=== PATIENT | female | born 1960 | race Caucasian/White ===

== ENCOUNTER 2018-03-29 12:35 | Emergency (ER) | payer MEDICAID ==
[2018-03-29 12:35] VITALS: BMI 23.4
--- NOTE | 2018-03-29 13:32 | ED PDOC ---
Arrival/HPI - General Chief Complaint: Dizziness/Lightheaded Time Seen by Provider: 03/29/18 12:46 - History of Present Illness Narrative History of Present Illness (Text): 03/29/18 13:18 Patient is a 57 year old female with a past medical history of hyperlipidemia, degenerative joint disease/spondylolisthesis, and migraines who presents to the ED complaining of dizziness. Patient says she had just returned home from physical therapy for her back yesterday afternoon when she suddenly started feeling like the room was spinning. Patient describes it as the room spinning, worsened by moving her head back and forth or laying down from a seated position. Patient says it improves if she sits still without moving her head. She says she has never had this before. She also admits to associated pain over the latter day area on the right with pressure, as well as palpitations that started yesterday which she attribute to anxiety about how she is feeling. Of note, patient says she started a medrol dose pack yesterday for her back pain. She also admits to constipation which she thinks is from the new medication. She denies any headache, fever, chills, changes in vision/hearing, ear pain/ pressure, tinnitus, sinus congestion, sore throat, cough, chest pain, SOB, nausea, vomiting, diarrhea, and pain/numbness/tingling/weakness in the extremities. PMH: hyperlipidemia, degenerative joint disease/spondylolisthesis, and migraines Meds: lipitor, naproxen prn, medrol dose pack Allergies: denies PSH: x3 FH: denies SH: denies tobacco, alcohol, and drug use (Adriana Branch) Past Medical History - Cardiac Hx VT: Yes - Psychiatric Hx Depression: No Hx Emotional Abuse: No Hx Physical Abuse: No Hx Substance Use: No - Surgical History Hx Hysterectomy: Yes - Suicidal Assessment Feels Threatened In Home Enviroment: No Family/Social History Family/Social History: No Known Family HX Smoking Status: Never Smoked Hx Alcohol Use: No Hx Substance Use: No Allergies/Home Meds Allergies/Adverse Reactions: Allergies No Known Allergies Allergy (Verified 03/29/18 12:51) Home Medications: Home Meds Medication Instructions Recorded Confirmed Prednisone [Babs] 2 mg PO DAILY 03/29/18 03/29/18 Review of Systems - Physician Review All systems were reviewed & negative as marked: Yes - Review of Systems Constitutional: Normal. absent: Fatigue, Fevers Eyes: Normal. absent: Vision Changes ENT: Normal. absent: Hearing Changes, Tinnitus, Sore Throat, Rhinorrhea, Sinus Congestion Respiratory: Normal. absent: SOB, Cough, Sputum, Wheezing Cardiovascular: Palpitations. absent: Chest Pain, Edema, Calf Pain, Syncope Gastrointestinal: Constipation. absent: Abdominal Pain, Diarrhea, Nausea, Vomiting Genitourinary Female: Normal. absent: Dysuria, Frequency, Hematuria Musculoskeletal: Back Pain (chronic). absent: Myalgias Skin: Normal. absent: Rash Neurological: Dizziness. absent: Headache, Focal Weakness, Speech Changes, Facial Droop Psychiatric: Anxiety (about the dizziness she feels) Physical Exam Temperature: Afebrile Blood Pressure: Hypertensive (170/96, repeated at 150/92) Pulse: Regular Appearance: Positive for: Well-Appearing, Non-Toxic, Comfortable Pain Distress: None Mental Status: Positive for: Alert and Oriented X 3. No: Confused - Systems Exam Head: Present: Atraumatic, Normocephalic Pupils: Present: PERRL Extroacular Muscles: Present: EOMI, Other (no nystagmus) Conjunctiva: Present: Normal Ears: Present: NORMAL TM, Normal Canal. No: Erythema, TM Bulging, TM Perf Mouth: Present: Moist Mucous Membranes Nose (External): Present: Atraumatic Nose (Internal): Present: Normal Inspection Neck: Present: Normal Range of Motion. No: JVD, Bruit Respiratory/Chest: Present: Clear to Auscultation, Good Air Exchange. No: Respiratory Distress, Accessory Muscle Use Cardiovascular: Present: Regular Rate and Rhythm, Murmurs (DIONNE heard best at the right second intercostal space), Normal S1, S2 Abdomen: Present: Normal Bowel Sounds. No: Tenderness, Distention, Peritoneal Signs Upper Extremity: Present: Normal Inspection. No: Cyanosis, Edema Lower Extremity: Present: Normal Inspection. No: Edema Neurological: Present: GCS=15, CN II-XII Intact, Speech Normal, Motor Func Grossly Intact, Normal Sensory Function Skin: Present: Warm, Dry, Normal Color. No: Rashes Psychiatric: Present: Alert, Oriented x 3, Normal Insight, Normal Concentration Vital Signs Temp Pulse Resp BP Pulse Ox 03/29/18 12:46 97.7 F 106 H 18 149/87 100 Medical Decision Making ED Course and Treatment: 03/29/18 13:44 Seen and examined with the resident. Our history and physical exam reveals a woman with typical vertigo since yesterday. No headache. No numbness tingling or paresthesias. No weakness. No focal neurological findings. No nausea or vomiting. Her neurological exam is normal. (Kris Stewart) 03/29/18 13:40 Patient given meclizine for vertigo. Hypertensive with SBP in 150s - will need follow up with her PCP as patient has never been diagnosed before. EKG: Normal sinus rhythm at [address] head: no intracranial hemorrhage 03/29/18 15:07 (Adriana Branch) - Lab Interpretations Lab Results: 03/29/18 13:52 03/29/18 13:52 Lab Results 03/29/18 13:52: Sodium 147, Potassium 4.3, Chloride 107, Carbon Dioxide 26, Anion Gap 18, BUN 18, Creatinine 0.7, Est GFR ( Amer) > 60, Est GFR (Non- Af Amer) > 60, Random Glucose 97, Calcium 9.9, Phosphorus 3.6, Magnesium 2.0, Total Bilirubin 0.2, AST 28, ALT 43, Alkaline Phosphatase 67, Lactate Dehydrogenase 358, Total Creatine Kinase 35, Troponin I < 0.01, Total Protein 7.8, Albumin 4.6, Globulin 3.2, Albumin/Globulin Ratio 1.4 03/29/18 13:52: WBC 9.7, RBC 5.26, Hgb 12.6, Hct 39.3, MCV 74.7 L, MCH 24.0 L, MCHC 32.1, RDW 14.9 H, Plt Count 338, MPV 10.4, Gran % 59.8, Lymph % (Auto) 32.9 , [place] % (Auto) 4.7, Eos % (Auto) 2.1, Baso % (Auto) 0.5, Gran # 5.81, Lymph # ( Auto) 3.2, [place] # (Auto) 0.5, Eos # (Auto) 0.2, Baso # (Auto) 0.05 - RAD Interpretation Radiology Orders: 03/29/18 13:08 HEAD W/O CONTRAST [CT] Stat - Medication Orders Current Medication Orders: Discontinued Medications Meclizine HCl (Antivert) 25 mg PO STAT STA Stop: 03/29/18 13:09 Last Admin: 03/29/18 13:19 Dose: 25 mg - PA / SHAREPOINT CONSULTANT / Resident Statement / has reviewed & agrees with the documentation as recorded. / has examined the patient and agrees with the treatment plan. Disposition/Present on Arrival - Present on Arrival Any Indicators Present on Arrival: No History of DVT/PE: No History of Uncontrolled Diabetes: No Urinary Catheter: No History of Decub. Ulcer: No History Surgical Site Infection Following: None - Disposition Have Diagnosis and Disposition been Completed?: Yes Disposition Time: 15:08 Patient Plan: Discharge - Disposition Diagnosis: Vertigo Disposition: HOME/ ROUTINE Patient Problems: Current Active Problems Problem Status Onset Vertigo Acute Condition: STABLE Discharge Instructions (ExitCare): Vertigo (a Type of Dizziness) Additional Instructions: Please follow up with your primary care doctor next week for evaluation of hypertension. Please take Antivert 25 mg every 6 hours only as needed for dizziness. Prescriptions: Meclizine [Meclizine*] 25 mg PO Q6 #30 tab Referrals: Shira Lee MD [Family Provider] - Follow up with primary Forms: [employer] (Telugu)
[2018-03-29 14:16] LABS: BASO # 0.05 K/mm3 (0.0-2.0); BASO % 0.5 % (0.0-3.0); EOS # 0.2 (0.0-0.7); EOS % 2.1 % (1.5-5.0); GRAN # 5.81 (1.4-6.5); GRAN % 59.8 % (50.0-68.0); HEMOGLOBIN 12.6 g/dL (12.0-16.0); LYMPH # 3.2 (1.2-3.4); LYMPH % 32.9 % (22.0-35.0); MEAN CELL VOLUME 74.7 fl (80.0-105.0); MEAN CORPUSCULAR HGB CONC 32.1 g/dl (31.0-37.0); MEAN PLATELET VOLUME 10.4 fl (7.0-11.0); MONO # 0.5 (0.1-0.6); MONO % 4.7 % (1.0-6.0); RBC 5.26 10^6/uL (3.5-6.1); RED CELL DISTRIBUTION WIDTH 14.9 % (11.5-14.5); WHITE BLOOD COUNT 9.7 10^3/ul (4.5-11.0)
[2018-03-29 14:18] LABS: ALB/GLOB RATIO 1.4 (1.1-1.8); ALBUMIN 4.6 g/dL (3.0-4.8); ALT/SGPT 43 U/L (7-56); AST/SGOT 28 U/L (14-36); BLOOD UREA NITROGEN 18 mg/dL (7-21); CALCIUM 9.9 mg/dL (8.4-10.5); GFR AFRICAN-AMERICAN > 60; GFR NON-AFRICAN AMERICAN > 60
[2018-03-29 14:28] LABS: TROPONIN I < 0.01 ng/mL
--- NOTE | 2018-03-29 14:44 | CT ---
PROCEDURE: CT HEAD WITHOUT CONTRAST. HISTORY: Vertigo COMPARISON: None available. TECHNIQUE: Axial computed tomography images were obtained through the head/brain without intravenous contrast. Radiation dose: Total exam DLP = 751.28 mGy-cm. This CT exam was performed using one or more of the following dose reduction techniques: Automated exposure control, adjustment of the mA and/or kV according to patient size, and/or use of iterative reconstruction technique. FINDINGS: HEMORRHAGE: No intracranial hemorrhage. BRAIN: No mass effect or edema. No atrophy or chronic microvascular ischemic changes. VENTRICLES: Unremarkable. No hydrocephalus. CALVARIUM: Unremarkable. PARANASAL SINUSES: Unremarkable as visualized. No significant inflammatory changes. MASTOID AIR CELLS: Unremarkable as visualized. No inflammatory changes. OTHER FINDINGS: None. IMPRESSION: No acute intracranial hemorrhage.
[2018-03-29 15:40] VITALS: RESP 19; TEMP 98
[2018-03-29 15:45] VITALS: BP 142/72; PULSE 85; O2SAT 100
--- NOTE | 2018-03-30 09:37 | CARD ---
APPROVED REPORT EKG Measurement Heart [id number] <Conclusion> Normal sinus rhythm Small q 2,3,F No change
== END 2018-03-29 15:44 | disposition home or self-care (01) ==
LOC: ED 12:35
DX: R42 Dizziness and giddiness (principal); E78.5 Hyperlipidemia, unspecified

== ENCOUNTER 2018-11-06 15:21 | Emergency (ER) | payer MEDICAID ==
[2018-11-06 15:22] VITALS: BMI 23.4
[2018-11-06] MEDS ORDERED: Sodium Chloride 0.9% 1,000 ML IV STA (16:01)
[2018-11-06 16:04] VITALS: TEMP 98.3
--- NOTE | 2018-11-06 16:09 | ED PDOC ---
Arrival/HPI - General Chief Complaint: Abdominal Pain Time Seen by Provider: 11/06/18 15:52 Historian: Patient - History of Present Illness Narrative History of Present Illness (Text): 11/06/18 16:08 57 year old female with a past medical history of hyperlipidemia, degenerative joint disease/spondylolisthesis, and migraines who presents to the ED complaining of abdominal pain and diarrhea, for the past few days. She states that her stool is loose today. Patient notes secondary heartburn, loss of appetite, and nausea. She has taking Tylenol and Pepto Bismol with no relief. Patient denies fevers, chills, headache, dizziness, chest pain, shortness of breath, dyspnea on exertion, cough, vomiting, back pain, neck pain, or any other complaint. Time/Duration: < week Symptom Course: Unchanged Activities at Onset: Light Context: Home Past Medical History - Provider Review Nursing Documentation Reviewed: Yes - Cardiac Hx ND: Yes - Psychiatric Hx Depression: No Hx Emotional Abuse: No Hx Physical Abuse: No Hx Substance Use: No - Surgical History Hx Hysterectomy: Yes - Anesthesia Hx Anesthesia: Yes Hx Anesthesia Reactions: No Hx Malignant Hyperthermia: No - Suicidal Assessment Feels Threatened In Home Enviroment: No Family/Social History - Physician Review Nursing Documentation Reviewed: Yes Family/Social History: No Known Family HX Smoking Status: Never Smoked Hx Alcohol Use: No Hx Substance Use: No Allergies/Home Meds Allergies/Adverse Reactions: Allergies No Known Allergies Allergy (Verified 03/29/18 12:51) Home Medications: Home Meds Medication Instructions Recorded Confirmed RX: Prednisone [Babs] 2 mg PO DAILY 03/29/18 03/29/18 Review of Systems - Physician Review All systems were reviewed & negative as marked: Yes - Review of Systems Constitutional: absent: Fevers Respiratory: absent: SOB, Cough Cardiovascular: absent: Chest Pain Gastrointestinal: Abdominal Pain, Diarrhea, Nausea, Appetite Changes (loss of apetite). absent: Vomiting Musculoskeletal: absent: Back Pain, Neck Pain Neurological: absent: Headache, Dizziness Physical Exam - Physical Exam Narrative Physical Exam (Text): 11/06/18 16:08 Gen: VS reviewed, alert, well developed, well nourished, nontoxic, mild distress. ENT: normal pharynx. Eye: EOMI, PERRL. Neck: no JVD, supple, no adenopathy. CV: regular rate, regular rhythm, no rubs, no murmur, no gallops, S1, S2, pulses equal and strong. Pulm: no distress, clear to auscultation, no wheeze, no rhonchi, breath sounds equal, no rales. Abd: soft, no guarding, no rebound, no rigidity, mild to moderate mid abdominal tenderness, normal bowel sounds Ext: no edema. Skin: good color, no rash, no cyanosis. Psych: responds appropriately to questions, normal affect. Neuro: oriented x 3, CN2-12 intact grossly, motor intact, sensation intact. Vital Signs Reviewed: Yes Vital Signs Temp Pulse Resp BP Pulse Ox 11/06/18 15:22 98.3 F 120 H 18 155/97 H 100 Temperature: Afebrile Blood Pressure: Hypertensive Pulse: Tachycardic Respiratory Rate: Normal Appearance: Positive for: Well-Appearing, Non-Toxic, Comfortable Pain Distress: None Mental Status: Positive for: Alert and Oriented X 3 Medical Decision Making ED Course and Treatment: 11/06/18 16:09 Impression: 57 year old female who presents to the emergency department complaining of abdominal pain. Plan: -- VBG -- Abdomen and Pellvis CT -- Labs -- IV fluids -- Toradol -- Zofran -- Urinalysis -- Reassess and disposition Prior Visits: Notes and results from previous visits were reviewed. Progress Notes: 11/06/18 18:00 on re-eval, patient feels well, pain mostly resolved, will continue to monitor. Pending CT 11/06/18 18:[address] blanchard, pending CT a/p, re-eval and final disposition. - RAD Interpretation Radiology Orders: 11/06/18 16:01 ABDOMEN & PELVIS [ABD PELVIS PO & IV CONTRAST] [CT] Stat - EKG Interpretation EKG Interpretation (Text): 11/06/18 18:22 [id number]:[id number] tachycardia at 110 bpm, nml qrs, nml axis, no acute sttw abn Interpreted by ED Physician: Yes - Medication Orders Current Medication Orders: Sodium Chloride (Sodium Chloride 0.9%) 1,000 mls @ 999 mls/hr IV .Q1H1M STA Stop: 11/06/18 17:01 Discontinued Medications Ketorolac Tromethamine (Toradol) 30 mg IVP STAT STA Stop: 11/06/18 16:02 Ondansetron HCl (Zofran Inj) 4 mg IVP STAT STA Stop: 11/06/18 16:02 - Scribe Statement The provider has reviewed the documentation as recorded by the Wagner Grewal Provider Scribe Attestation: All medical record entries made by the Scribe were at my direction and personally dictated by me. I have reviewed the chart and agree that the record accurately reflects my personal performance of the history, physical exam, medical decision making, and the department course for this patient. I have also personally directed, reviewed, and agree with the discharge instructions and disposition. Disposition/Present on Arrival - Present on Arrival Any Indicators Present on Arrival: No History of DVT/PE: No History of Uncontrolled Diabetes: No Urinary Catheter: No History of Decub. Ulcer: No History Surgical Site Infection Following: None - Disposition Have Diagnosis and Disposition been Completed?: Yes Diagnosis: Abdominal pain, Gastroenteritis Disposition: HOME/ ROUTINE Disposition Time: 19:53 Patient Plan: Discharge Condition: IMPROVED Discharge Instructions (ExitCare): Nausea and Vomiting, Adult (DC), Gastroenteritis (ED) Print Language: UKRAINIAN Additional Instructions: Please continue to hydrate with fluids(water, Gatorade, juices) at home Please take your medication as prescribed Please follow up with your PCP in 3-5 days. Prescriptions: Cephalexin [cephalexin] 500 mg PO BID 10 Days #20 cap Metronidazole [Flagyl] 500 mg PO BID 10 Days #20 tablet Referrals: Shira Lee MD [Family Provider] - Follow up with primary Forms: [employer] (Czech)
[2018-11-06] MEDS ORDERED: Iohexol 240 (50 ml) ONE (16:11)
[2018-11-06 17:07] LABS: VENOUS BLOOD GAS BASE EXCESS 0.8 mmol/L (0.0-2.0); VENOUS BLOOD GAS PO2 37 mm/Hg (30-55); VENOUS BLOOD PH 7.39 (7.32-7.43)
[2018-11-06 17:22] LABS: BASO # 0.03 K/mm3 (0.0-2.0); BASO % 0.2 % (0.0-3.0); EOS # 0.1 (0.0-0.7); EOS % 1.1 % (1.5-5.0); GRAN # 9.79 (1.4-6.5); GRAN % 80.4 % (50.0-68.0); HEMOGLOBIN 12.9 g/dL (12.0-16.0); LYMPH # 1.6 (1.2-3.4); LYMPH % 13.1 % (22.0-35.0); MEAN CELL VOLUME 74.5 fl (80.0-105.0); MEAN CORPUSCULAR HEMOGLOBIN 23.6 pg (25.0-35.0); MEAN CORPUSCULAR HGB CONC 31.7 g/dl (31.0-37.0); MEAN PLATELET VOLUME 10.4 fl (7.0-11.0); MONO # 0.6 (0.1-0.6); MONO % 5.2 % (1.0-6.0); RBC 5.46 10^6/uL (3.5-6.1); RED CELL DISTRIBUTION WIDTH 15.6 % (11.5-14.5); WHITE BLOOD COUNT 12.2 10^3/uL (4.5-11.0)
[2018-11-06 17:26] LABS: ALB/GLOB RATIO 1.4 (1.1-1.8); ALBUMIN 4.8 g/dL (3.0-4.8); ALT/SGPT 36 U/L (7-56); AST/SGOT 34 U/L (14-36); BLOOD UREA NITROGEN 19 mg/dL (7-21); CALCIUM 10.2 mg/dL (8.4-10.5); GFR NON-AFRICAN AMERICAN > 60; LIPASE 109 U/L (23-300)
[2018-11-06] MEDS ORDERED: Iohexol 350 MG/100 ML VIAL ONE (18:16)
--- NOTE | 2018-11-06 18:56 | ED PDOC ---
Physical Exam Vital Signs Temp Pulse Resp BP Pulse Ox 11/06/18 15:22 98.3 F 120 H 18 155/97 H 100 Medical Decision Making ED Course and Treatment: 11/06/18 18:[address] Syed pending a CT a/p, reassessment. Given Toradol & NSS. PCP is Dr. Lee. 11/08/18 22:15 Shared decision making with patient and who desire to go home. Encouragement to continue conservative management and hydration at home. Scripts provided. She is stable for discharge. - Lab Interpretations Lab Results: 11/06/18 17:00 11/06/18 17:00 Lab Results 11/06/18 17:00: Sodium 143, Chloride 106, Potassium 3.5 L, Carbon Dioxide 25, Anion Gap 15, BUN 19, Creatinine 0.8, Est GFR ( Amer) > 60, Est GFR (Non- Af Amer) > 60, Random Glucose 127 H, Calcium 10.2, Total Bilirubin 0.6, AST 34, ALT 36, Alkaline Phosphatase 90, Total Protein 8.2, Albumin 4.8, Globulin 3.5, Albumin/Globulin Ratio 1.4, Lipase 109 11/06/18 17:00: pO2 37, VBG pH 7.39, VBG pCO2 43.0, VBG HCO3 26.0, VBG Total CO2 27.3, VBG O2 Sat (Calc) 71.7 H, VBG Base Excess 0.8, VBG Potassium 3.6, Sodium 144.0, Chloride 106.0, Glucose 124 H, Lactate 1.8, FiO2 21.0, Venous Blood Potassium 3.6 11/06/18 17:00: WBC 12.2 H, RBC 5.46, Hgb 12.9, Hct 40.7, MCV 74.5 L, MCH 23.6 L , MCHC 31.7, RDW 15.6 H, Plt Count 315, MPV 10.4, Gran % 80.4 H, Lymph % (Auto) 13.1 L, [place] % (Auto) 5.2, Eos % (Auto) 1.1 L, Baso % (Auto) 0.2, Gran # 9.79 H, Lymph # (Auto) 1.6, [place] # (Auto) 0.6, Eos # (Auto) 0.1, Baso # (Auto) 0.03 - RAD Interpretation Narrative RAD Interpretations (Text): 11/06/18 19:46 CT of Abdomen and Pelvis reviewed by radiologist, shows: IMPRESSION: 1. Tiny amount of free pelvic fluid, right side of pelvis 2. 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 The appendix is not visualized with certainty. There are no right lower quadrant inflammatory changes. Intestinal pattern is nonobstructive. No evidence of acute diverticulitis. Radiology Orders: 11/06/18 16:01 ABDOMEN & PELVIS [ABD PELVIS PO & IV CONTRAST] [CT] Stat Opener Tender: Radiologist - Medication Orders Current Medication Orders: Discontinued Medications Sodium Chloride (Sodium Chloride 0.9%) 1,000 mls @ 999 mls/hr IV .Q1H1M STA Stop: 11/06/18 17:01 Last Admin: 11/06/18 16:56 Dose: 999 mls/hr eMAR Start Stop Document 11/06/18 16:56 AMA (Rec: 11/06/18 16:57 AMA [id number]) Intravenous Solution Start Date 11/06/18 Start Time 16:57 Ketorolac Tromethamine (Toradol) 30 mg IVP STAT STA Stop: 11/06/18 16:02 Last Admin: 11/06/18 16:55 Dose: 30 mg MAR Pain Assessment Document 11/06/18 16:55 AMA (Rec: 11/06/18 16:56 AMA [id number]) Pain Reassessment Is this a pain reassessment? No IVP Administration Document 11/06/18 16:55 AMA (Rec: 11/06/18 16:56 AMA [id number]) Charges for Administration # of IVP Administrations 1 Ondansetron HCl (Zofran Inj) 4 mg IVP STAT STA Stop: 11/06/18 16:02 Last Admin: 11/06/18 16:56 Dose: 4 mg IVP Administration Document 11/06/18 16:56 AMA (Rec: 11/06/18 16:56 AMA [id number]) Charges for Administration # of IVP Administrations 1 Disposition/Present on Arrival - Present on Arrival Any Indicators Present on Arrival: No History of DVT/PE: No History of Uncontrolled Diabetes: No Urinary Catheter: No History of Decub. Ulcer: No History Surgical Site Infection Following: None - Disposition Have Diagnosis and Disposition been Completed?: Yes Diagnosis: Abdominal pain, Gastroenteritis Disposition: HOME/ ROUTINE Disposition Time: 21:40 Patient Plan: Discharge Condition: IMPROVED Discharge Instructions (ExitCare): Nausea and Vomiting, Adult (DC), Gastroenteritis (ED) Print Language: ITALIAN Additional Instructions: Please continue to hydrate with fluids(water, Gatorade, juices) at home Please take your medication as prescribed Please follow up with your PCP in 3-5 days. Prescriptions: Cephalexin [cephalexin] 500 mg PO BID 10 Days #20 cap Metronidazole [Flagyl] 500 mg PO BID 10 Days #20 tablet Referrals: Shira Lee MD [Family Provider] - Follow up with primary Forms: [employer] (Canadian)
[2018-11-06 19:53] VITALS: RESP 16
[2018-11-06 22:28] VITALS: BP 137/86; PULSE 88; O2SAT 99
--- NOTE | 2018-11-07 07:20 | CT ---
Date of service: 11/06/2018 PROCEDURE: CT Abdomen and Pelvis with contrast HISTORY: mid abdominal pain COMPARISON: None. TECHNIQUE: Contrast dose: 100 mL of Omnipaque 350 intravenously. Axial and reformatted coronal and sagittal CT images of the abdomen and pelvis were obtained after IV and oral contrast administration. Radiation dose: Total exam DLP = 409.37 mGy-cm. This CT exam was performed using one or more of the following dose reduction techniques: Automated exposure control, adjustment of the mA and/or kV according to patient size, and/or use of iterative reconstruction technique. FINDINGS: LOWER THORAX: No evidence of acute pathology at the lung bases. Distal esophagus mucosal thickening is noted. LIVER: Mild heterogeneous enhancement of the liver is noted without evidence of discrete mass. The portal vein is patent. GALLBLADDER AND BILE DUCTS: No CT evidence of acute cholecystitis or biliary ductal dilatation. PANCREAS: Unremarkable. No gross lesion or ductal dilatation. SPLEEN: Unremarkable. ADRENALS: Unremarkable. No mass. KIDNEYS AND URETERS: Unremarkable. No hydronephrosis. No solid mass. VASCULATURE: Unremarkable. No aortic aneurysm. No aortic atherosclerotic calcification or mural plaque present. BOWEL: Large bowel wall thickening versus incomplete distention. No evidence of high-grade bowel obstruction. APPENDIX: The appendix is not clearly visualized. There is no evidence of inflammatory changes around the cecum to suggest acute appendicitis. PERITONEUM: Unremarkable. No free fluid. No free air. LYMPH NODES: Slightly prominent mesenteric lymph nodes at the right lower abdomen noted. No enlarged lymph nodes. BLADDER: Unremarkable. REPRODUCTIVE: Unremarkable. BONES: No acute fracture. OTHER FINDINGS: None. IMPRESSION: Large bowel wall thickening versus incomplete distention. Please correlate clinically for colitis. Suspicious for distal gastric wall thickening also. The appendix is not clearly visualized. No evidence of inflammatory changes adjacent to the cecum to suggest acute appendicitis. Slightly prominent mesenteric lymph nodes in the right lower abdomen may represent mesenteric adenitis in appropriate clinical setting. Preliminary report was submitted by [facility] Radiology contains concordant findings.
--- NOTE | 2018-11-07 09:20 | CARD ---
APPROVED REPORT Date of service: 11/06/2018 EKG Measurement Heart [id number] <Conclusion> Sinus tachycardia Small q 2,3,F Prolonged QTc
== END 2018-11-06 22:01 | disposition home or self-care (01) ==
LOC: ED 15:21
DX: K52.9 Noninfective gastroenteritis and colitis, unspecified (principal); E78.5 Hyperlipidemia, unspecified; I25.2 Old myocardial infarction
CPT/HCPCS: 74177; 80053; 82803; 83690; 85025; 93005; 96374; 96375; 99284; J1885; J2405; J7030; Q9966; Q9967

== ENCOUNTER 2019-02-20 16:46 | Emergency (ER) | payer MEDICAID ==
[2019-02-20 16:51] VITALS: BMI 23.9
[2019-02-20 16:58] VITALS: TEMP 98.8; O2SAT 100
[2019-02-20] MEDS ORDERED: Sodium Chloride 0.9% 1,000 ML IV STA (17:12)
--- NOTE | 2019-02-20 17:17 | ED PDOC ---
Arrival/HPI - General Chief Complaint: Flu-like Symptoms Time Seen by Provider: 02/20/19 16:52 Historian: Patient - History of Present Illness Narrative History of Present Illness (Text): 02/20/19 17:13 58 year old female, whose past medical history includes history of tachycardia, hyperlipidemia, degenerative joint disease/spondylolisthesis, and migraines, presents to the emergency department complaining of sore throat, fever, body aches, and headache for the past 2 days. Patient reports positive sick contact and states her has an infection and her son as diagnosed with the flu. She did not get her flu shot this year. Patient denies chills, chest pain, shortness of breath, nausea, vomiting, diarrhea, urinary symptoms, back pain, neck pain, dizziness, or any other complaints. PMD: Dr. Lee Time/Duration: Other (2 days) Symptom Onset: Gradual Symptom Course: Unchanged Activities at Onset: Light Past Medical History - Provider Review Nursing Documentation Reviewed: Yes - Infectious Disease Hx of Infectious Diseases: None - Cardiac Hx [place]: Yes - Psychiatric Hx Depression: No Hx Emotional Abuse: No Hx Physical Abuse: No Hx Substance Use: No - Surgical History Hx Section: Yes (x3) Hx Hysterectomy: Yes - Anesthesia Hx Anesthesia: Yes Hx Anesthesia Reactions: No Hx Malignant Hyperthermia: No - Suicidal Assessment Feels Threatened In Home Enviroment: No Family/Social History - Physician Review Nursing Documentation Reviewed: Yes Family/Social History: No Known Family HX Smoking Status: Never Smoked Hx Alcohol Use: No Hx Substance Use: No Allergies/Home Meds Allergies/Adverse Reactions: Allergies No Known Allergies Allergy (Verified 03/29/18 12:51) Home Medications: Home Meds Medication Instructions Recorded Confirmed Prednisone [Babs] 2 mg PO DAILY 03/29/18 03/29/18 Review of Systems - Physician Review All systems were reviewed & negative as marked: Yes - Review of Systems Constitutional: Fevers. absent: Other (chills) ENT: Sore Throat Respiratory: absent: SOB Cardiovascular: absent: Chest Pain Gastrointestinal: Appetite Changes. absent: Diarrhea, Nausea, Vomiting Musculoskeletal: Other (body aches). absent: Back Pain, Neck Pain Neurological: Headache. absent: Dizziness Physical Exam Vital Signs Reviewed: Yes Vital Signs Temp Pulse Resp BP Pulse Ox 02/20/19 16:46 98.8 F 121 H 20 139/84 100 Temperature: Afebrile Blood Pressure: Normal Pulse: Regular Respiratory Rate: Normal Appearance: Positive for: Well-Appearing, Non-Toxic, Comfortable Pain Distress: None Mental Status: Positive for: Alert and Oriented X 3 - Systems Exam Head: Present: Atraumatic, Normocephalic Pupils: Present: PERRL Extroacular Muscles: Present: EOMI Conjunctiva: Present: Normal Mouth: Present: Moist Mucous Membranes Pharnyx: No: ERYTHEMA, EXUDATE Neck: Present: Normal Range of Motion Respiratory/Chest: Present: Clear to Auscultation, Good Air Exchange. No: Respiratory Distress, Accessory Muscle Use Cardiovascular: Present: Normal S1, S2, Tachycardic. No: Murmurs Abdomen: No: Tenderness, Distention, Peritoneal Signs Back: Present: Normal Inspection Upper Extremity: Present: Normal Inspection. No: Cyanosis, Edema Lower Extremity: Present: Normal Inspection. No: Edema Neurological: Present: GCS=15, CN II-XII Intact, Speech Normal Skin: Present: Warm, Dry, Normal Color. No: Rashes Psychiatric: Present: Alert, Oriented x 3, Normal Insight, Normal Concentration Medical Decision Making ED Course and Treatment: 02/20/19 17:13 Impression: 58 year old female presents complaining of fever, sore throat, body aches, headache, and decrease appetite for the past 2 days. Patient positive for sick contact. Plan: -- IV Fluids, Tamiflu Cap, Tylenol -- Rapid Strep -- Reassess and disposition Prior Visits: Notes and results from previous visits were reviewed. Progress Notes: 02/20/19 18:19 Patient feels better after fluids and Tylenol. - Lab Interpretations I have reviewed the lab results: Yes - Medication Orders Current Medication Orders: Acetaminophen (Tylenol 325mg Tab) 975 mg PO STAT STA Stop: 02/20/19 17:13 Sodium Chloride (Sodium Chloride 0.9%) 1,000 mls @ 999 mls/hr IV .Q1H1M STA Stop: 02/20/19 18:12 - Scribe Statement The provider has reviewed the documentation as recorded by the Scribe Eusebio Ferrell All medical record entries made by the Scribe were at my direction and personally dictated by me. I have reviewed the chart and agree that the record accurately reflects my personal performance of the history, physical exam, medical decision making, and the department course for this patient. I have also personally directed, reviewed, and agree with the discharge instructions and disposition Disposition/Present on Arrival - Present on Arrival Any Indicators Present on Arrival: No History of DVT/PE: No History of Uncontrolled Diabetes: No Urinary Catheter: No History of Decub. Ulcer: No History Surgical Site Infection Following: None - Disposition Have Diagnosis and Disposition been Completed?: Yes Diagnosis: Flu-like symptoms Disposition: HOME/ ROUTINE Disposition Time: 18:23 Patient Plan: Discharge Condition: IMPROVED Discharge Instructions (ExitCare): Flu, Adult (DC) Additional Instructions: VERONICA MCKEON, thank you for letting us take care of you today. Your provider was Randi Vee MD and you were treated for FLU-LIKE SYMPTOMS, SHORTNESS. The emergency medical care you received today was directed at your acute symptoms. If you were prescribed any medication, please fill it and take as directed. It may take several days for your symptoms to resolve. Return to the Emergency Department if your symptoms worsen, do not improve, or if you have any other problems. Please contact your doctor for a follow up appointment in 2-3 days. Drink plenty of fluid. Take Tylenol or Motrin for fever and muscle aches. Bring any paperwork you were given at discharge with you along with any medications you are taking to your follow up visit. Our treatment cannot replace ongoing medical care by a primary care provider outside of the emergency department. Thank you for allowing the [facility] team to be part of your care today. Prescriptions: Oseltamivir Cap [Tamiflu] 75 mg PO BID #9 cap Referrals: Shira Lee MD [Primary Care Provider] - Follow up with primary Forms: [employer] (Belarusian)
[2019-02-20 17:54] VITALS: BP 137/84; PULSE 108; RESP 18
== END 2019-02-20 18:41 | disposition home or self-care (01) ==
LOC: ED 16:46
DX: J11.1 Influenza due to unidentified influenza virus with other respiratory manifestations (principal); E78.5 Hyperlipidemia, unspecified
CPT/HCPCS: 87070; 87430; 96360; 99283; J7030